=== PATIENT | female | born 1985 | race African-American/Black ===

== ENCOUNTER 2021-07-24 13:00 | Emergency (ER) | payer MEDICAID ==
[~2021-07-24] VITALS: Ht 165.1 cm; Wt 66.0 kg
[2021-07-24] MEDS ORDERED: ACETAMINOPHEN 325MG TABLET PO STA (14:05)
[2021-07-24 15:03] LABS: BASOPHILS % 0.9 % (0.0-2.0); CLARITY URINE CLEAR (CLEAR); COLOR URINE YELLOW (YELLOW); EOSINOPHILS % 1.2 % (0.0-5.0); HEMOGLOBIN. 8.6 g/dL (12.0-16.0); KETONES URINE NEGATIVE (NEGATIVE); LEUKOCYTE ESTERASE URINE 1+ (NEGATIVE); LYMPHOCYTES % 29.7 % (20.0-50.0); MEAN CORPUSCULAR HEMOGLOBIN 19.8 pg (28.0-32.0); MEAN CORPUSCULAR VOLUME 62.3 fL (81.0-99.0); MEAN PLATELET VOLUME 8.2 fl (7.4-10.4); MONOCYTES % 8.3 % (2.0-8.0); NEUTROPHILS % 59.9 % (40.0-76.0); NITRITE URINE NEGATIVE (NEGATIVE); OCCULT BLOOD URINE NEGATIVE (NEGATIVE); PLATELET 558 x1000/uL (130-400); PROTEIN URINE NEGATIVE (NEGATIVE); RED BLOOD CELL COUNT 4.33 mill/uL (4.2-5.4); RED CELL DISTRIBUTION WIDTH 21.9 % (11.6-14.6); SPECIFIC GRAVITY URINE 1.014 (1.005-1.030)
[2021-07-24 15:21] LABS: CHLORIDE 105 mEq/L (98-107)
[2021-07-24 15:55] LABS: B-HCG QUANTITATIVE 51581 mIU/mL (<3)
[2021-07-24] MEDS ORDERED: NITR-87 MT (15:58)
[2021-07-24] MEDS ORDERED: CEFTRIAXONE SODIUM 500 MG/VIAL IM ONE (16:00)
[2021-07-24] MEDS ORDERED: METRONIDAZOLE 500MG TABLET PO ONE (16:00)
[2021-07-24] MEDS ORDERED: AZITHROMYCIN 500 MG TABLET PO ONE (16:00)
[2021-07-24] MEDS ORDERED: GENTAMICIN SULF 40MG/ML 2ML VIAL IM ONE (16:00)
[2021-07-24] MEDS ORDERED: LIDOCAINE HCL 1% 20ML VIAL (Pyxis) INJ INFIL ONE (16:00)
[2021-07-24 16:21] LABS: PLATELET ESTIMATE MARKEDLY INCREASED
[2021-07-24 17:07] VITALS: BP 100/62
== END 2021-07-24 17:25 | disposition home or self-care (01) ==
LOC: ER 13:00
DX: O23.41 Unspecified infection of urinary tract in pregnancy, first trimester (principal); N39.0 Urinary tract infection, site not specified; Z3A.13 13 weeks gestation of pregnancy
CPT/HCPCS: 36415; 76801; 76817; 80053; 81003; 84702; 85025; 86850; 86900; 86901; 96372; 99284; J0696; J3490; J1580

== ENCOUNTER 2022-01-15 13:37 | Observation (INO) | payer MEDICAID ==
[~2022-01-15] VITALS: Ht 160 cm; Wt 78.0 kg
[~2022-01-15 13:37] MED LIST: NITR-87 MT
== END 2022-01-15 15:45 | disposition home or self-care (01) ==
LOC: 8 EST LDRP 13:37
PROVIDERS: ADMIT Specialist; ATTEND Specialist
DX: O42.92 Full-term premature rupture of membranes, unspecified as to length of time between rupture and onset of labor (principal); O09.523 Supervision of elderly multigravida, third trimester; Z3A.39 39 weeks gestation of pregnancy
CPT/HCPCS: 59025; G0378; 99281; G0379